=== PATIENT | male | born 1940 | race Hispanic/Latino ===

== ENCOUNTER 2017-01-12 16:49 | Inpatient (IN) | payer MEDICARE, OTHER ==
[2017-01-12 17:05] VITALS: BMI 27.1
[2017-01-12] MEDS ORDERED: Sodium Chloride 0.9% 1,000 ML IV ONE ×2 (17:08→18:47)
--- NOTE | 2017-01-12 17:09 | ED PDOC ---
Arrival/HPI - General Time Seen by Provider: 01/12/17 16:51 Historian: Patient - Critical Care Critical Care Minutes: 30 minutes - History of Present Illness Narrative History of Present Illness (Text): 01/12/17 17:00 76 year old male, whose past medical history includes hypertension, is brought in by EMS and presents to emergency department as AMS. Patient was found unconscious on the floor of his home by neighbor. Ambulance was called immediately afterwards. Limited HPI and ROS due to AMS. PMD: Dr. Hutchinson Symptom Onset: Sudden Symptom Course: Unchanged Context: Home Past Medical History - Provider Review Nursing Documentation Reviewed: Yes - Cardiac Hx Cardiac Disorders: Yes Hx Hypertension: Yes - Pulmonary Hx Respiratory Disorders: No - Neurological Hx Neurological Disorder: No - HEENT Hx HEENT Disorder: No - Renal Hx Renal Disorder: No - Endocrine/Metabolic Hx Endocrine Disorders: Yes (partial thyroidectomy) - Hematological/Oncological Hx Blood Disorders: No - Integumentary Hx Dermatological Disorder: No - Musculoskeletal/Rheumatological Hx Musculoskeletal Disorders: No Hx Falls: Yes - Gastrointestinal Hx Gastrointestinal Disorders: No - Genitourinary/Gynecological Hx Genitourinary Disorders: No - Psychiatric Hx Psychophysiologic Disorder: No Hx Anxiety: No Hx Emotional Abuse: No Hx Physical Abuse: No Hx Substance Use: No - Surgical History Hx Thyroidectomy: Yes (partial) Hx Tonsillectomy: Yes - Anesthesia Hx Anesthesia Reactions: No Hx Malignant Hyperthermia: No - Suicidal Assessment Feels Threatened In Home Enviroment: No Family/Social History - Physician Review Nursing Documentation Reviewed: Yes Family/Social History: No Known Family HX Smoking Status: Former Smoker Hx Alcohol Use: No Hx Substance Use: No Allergies/Home Meds Allergies/Adverse Reactions: Allergies Iodine and Iodide Containing Produc Allergy (Verified 01/12/17 17:01) URTICARIA Home Medications: Home Meds Medication Instructions Recorded Confirmed Unobtainable 01/12/17 01/12/17 Review of Systems - Review of Systems Systems not reviewed;Unavailable: Altered Mental Status Physical Exam Vital Signs Temp Pulse Resp BP Pulse Ox 01/12/17 20:00 67 24 147/102 H 99 01/12/17 18:26 98.0 F 75 18 165/100 H 100 01/12/17 17:27 98.2 F 85 18 174/108 H 96 Appearance: Positive for: Ill-Appearing, Unkept, Other (foul-smelling) Mental Status: Positive for: other (patient is aware he is in [facility], who he is, how old he is, when he was born, but is uncertain what happened to him except that he fell.) Finger Stick Blood Glucose: 137 - Systems Exam Head: Present: Other (decubitus to lateral right-side of head) Pupils: Present: PERRL Extroacular Muscles: Present: EOMI Conjunctiva: Present: Normal Mouth: Present: Moist Mucous Membranes Neck: Present: Normal Range of Motion Respiratory/Chest: Present: Clear to Auscultation, Good Air Exchange. No: Respiratory Distress, Accessory Muscle Use Cardiovascular: Present: Regular Rate and Rhythm, Normal S1, S2. No: Murmurs Abdomen: Present: Normal Bowel Sounds. No: Tenderness, Distention, Peritoneal Signs Back: Present: Normal Inspection Upper Extremity: Present: Other (decubitus of lateral right shoulder) Lower Extremity: Present: Other (decubitus of lateral side of right knee and medial side of left knee) Neurological: Present: GCS=15, CN II-XII Intact, Speech Normal Skin: Present: Warm, Dry, Normal Color. No: Rashes Psychiatric: Present: Alert, Oriented x 3, Normal Insight, Normal Concentration Medical Decision Making ED Course and Treatment: 01/12/17 17:03 Impression: 76 year old male with AMS. Physical exam shows decubitus to lateral right-side of head, right shoulder, right knee, and medial side of left knee. Plan: -- EKG -- Head CT -- Chest X-ray -- Labs -- Urinalysis -- Blood Culture -- Urine Culture -- IV Fluids -- Reassess and disposition Prior Visits: Notes and results from previous visits were reviewed. Patient was last seen in the emergency department on 01/29/2016 for AMS after being found lying on the ground outside. Progress Notes: 01/12/17 17:46 EKG shows normal sinus rhythm rate approximately 90 with a primary AV block and no acute ST or T-wave changes and Q waves inferiorly. 01/12/17 18:46 Code sepsis called. 01/12/2017 18:[address] IMPRESSION: Significant chronic white matter, basal nuclei and brainstem ischemic changes. Ischemic changes. Moderate to significant atrophy. Dictator: Blade Isidro DO 01/12/2017 19:[address] Hutchinson, whom agrees to take patient under service. Ibrahima's sister Ivon Chester: [phone] - Lab Interpretations Lab Results: 01/12/17 17:21 01/12/17 17:21 Lab Results 01/12/17 19:04: Urine Opiates Screen Negative, Urine Methadone Screen Negative, Ur Barbiturates Screen Negative, Ur Phencyclidine Scrn Negative, Ur Amphetamines Screen Negative, U Benzodiazepines Scrn Negative, U Oth Cocaine Metabols Negative, U Cannabinoids Screen Negative 01/12/17 19:04: Ammonia < 9 L 01/12/17 18:00: Urine Color Yellow, Urine Appearance Cloudy, Urine pH 6.0, Ur Specific [place] >= 1.030, Urine Protein 100 H, Urine Glucose (UA) Negative, Urine Ketones Negative, Urine Blood Large H, Urine Nitrate Negative, Urine Bilirubin Negative, Urine Urobilinogen 0.2, Ur Leukocyte Esterase Trace H, Urine RBC 25 - 30, Urine WBC 2 - 5, Ur Epithelial Cells 1 - 3, Urine Bacteria Mod 01/12/17 17:21: pO2 25 L, VBG pH 7.33, VBG pCO2 50.0, VBG HCO3 26.4, VBG Total CO2 27.9, VBG O2 Sat (Calc) 56.0, VBG Base Excess -0.2 L, VBG Potassium 3.8, Sodium 138.0, Chloride 106.0, Glucose 143 H, Lactate 2.2 H, FiO2 21.0, Venous Blood Potassium 3.8 01/12/17 17:21: Acetaminophen < 10.0 L 01/12/17 17:21: TSH 3rd Generation 6.73 H, Alcohol, Quantitative < 10 01/12/17 17:21: Sodium 140, Chloride 105, Potassium 4.0, Carbon Dioxide 25, Anion Gap 14, BUN 18, Creatinine 1.5, Est GFR ( Amer) 55, Est GFR (Non- Af Amer) 45, Random Glucose 142 H, Calcium 10.3, Phosphorus 2.6, Magnesium 1.8, Total Bilirubin 1.3, AST 26, ALT 28, Alkaline Phosphatase 107, Lactate Dehydrogenase 583, Total Creatine Kinase 220, Troponin I < 0.01 D, Total Protein 7.4, Albumin 4.3, Globulin 3.2, Albumin/Globulin Ratio 1.3 01/12/17 17:21: PT 10.4, INR 0.96, APTT 25.9 01/12/17 17:21: WBC 12.3 H D, RBC 4.68, Hgb 14.4, Hct 41.8 L, MCV 89.3, MCH 30.8 , MCHC 34.4, RDW 13.3, Plt Count 273, MPV 9.1, Gran % 81.9 H, Lymph % (Auto) 7.7 L, [place] % (Auto) 9.1 H, Eos % (Auto) 1.1 L, Baso % (Auto) 0.2, Gran # 10.05 H, Lymph # 1.0 L, [place] # 1.1 H, Eos # 0.1, Baso # 0.03 01/12/17 16:55: POC Glucose (mg/dL) 137 H - RAD Interpretation Radiology Orders: 01/12/17 17:05 HEAD W/O CONTRAST [CT] Stat 01/12/17 17:06 CHEST PORTABLE [RAD] Stat Chest one view shows an elevated right hemidiaphragm with no infiltrate or effusion. Target Protection Specialist: ED Physician - Medication Orders Current Medication Orders: Sodium Chloride (Sodium Chloride 0.9%) 1,000 mls @ 500 mls/hr IV ONCE ONE Stop: 01/12/17 20:46 Last Admin: 01/12/17 19:15 Dose: 500 mls/hr eMAR Start Stop Document 01/12/17 19:15 IT (Rec: 01/12/17 19:15 IT [id number]) Intravenous Solution Start Date 01/12/17 Start Time 19:15 End Date 01/12/17 End time 21:15 Total Infusion Time 120 Discontinued Medications Sodium Chloride (Sodium Chloride 0.9%) 1,000 mls @ 500 mls/hr IV ONCE ONE Stop: 01/12/17 19:07 Last Admin: 01/12/17 17:28 Dose: 500 mls/hr eMAR Start Stop Document 01/12/17 17:28 IT (Rec: 01/12/17 17:28 IT [id number]) Intravenous Solution Start Date 01/12/17 Start Time 17:28 End Date 01/12/17 End time 19:28 Total Infusion Time 120 Ceftriaxone Sodium (Rocephin 1 Gram Ivpb) 1 gm in 100 mls @ 200 mls/hr IVPB STAT STA PRN Reason: Protocol Stop: 01/12/17 19:14 Last Admin: 01/12/17 18:56 Dose: 200 mls/hr eMAR Start Stop Document 01/12/17 18:56 IT (Rec: 01/12/17 18:56 IT [id number]) Intravenous Solution Start Date 01/12/17 Start Time 18:56 End Date 01/12/17 End time 19:20 Total Infusion Time 24 - Scribe Statement The provider has reviewed the documentation as recorded by the Chapraro Corcoran Provider Scribe Attestation: All medical record entries made by the Chaparro were at my direction and personally dictated by me. I have reviewed the chart and agree that the record accurately reflects my personal performance of the history, physical exam, medical decision making, and the department course for this patient. I have also personally directed, reviewed, and agree with the discharge instructions and disposition. Disposition/Present on Arrival - Present on Arrival Any Indicators Present on Arrival: No History of DVT/PE: No History of Uncontrolled Diabetes: No Urinary Catheter: No History of Decub. Ulcer: No History Surgical Site Infection Following: None - Disposition Have Diagnosis and Disposition been Completed?: Yes Diagnosis: Altered mental status, Leukocytosis, Sepsis, Hematuria, Urinary tract infection Disposition: HOSPITALIZED Disposition Time: 19:33 Patient Plan: Admission, Telemetry Patient Problems: Current Active Problems Problem Status Onset Altered mental status Acute Hematuria Acute Leukocytosis Acute Sepsis Acute Urinary tract infection Acute Condition: SERIOUS
[2017-01-12 17:35] LABS: BASO # 0.03 K/mm3 (0.0-2.0); BASO % 0.2 % (0.0-3.0); EOS # 0.1 (0.0-0.7); EOS % 1.1 % (1.5-5.0); GRAN # 10.05 (1.4-6.5); GRAN % 81.9 % (50.0-68.0); HEMATOCRIT 41.8 % (42.0-52.0); LYMPH % 7.7 % (22.0-35.0); MEAN CELL VOLUME 89.3 fl (80.0-105.0); MEAN CORPUSCULAR HEMOGLOBIN 30.8 pg (25.0-35.0); MEAN CORPUSCULAR HGB CONC 34.4 g/dl (31.0-37.0); MEAN PLATELET VOLUME 9.1 fl (7.0-11.0); MONO # 1.1 (0.1-0.6); MONO % 9.1 % (1.0-6.0); RED CELL DISTRIBUTION WIDTH 13.3 % (11.5-14.5); WHITE BLOOD COUNT 12.3 10^3/ul (4.5-11.0)
[2017-01-12 17:36] LABS: VENOUS BLOOD GAS BASE EXCESS -0.2 mmol/L (0.0-2.0); VENOUS BLOOD PH 7.33 (7.32-7.43)
[2017-01-12 17:43] LABS: SODIUM 140 mmol/L (132-148)
[2017-01-12 17:45] LABS: ALCOHOL SERUM < 10 mg/dL (0-10)
[2017-01-12 17:46] LABS: ALB/GLOB RATIO 1.3 (1.1-1.8); ALKALINE PHOSPHATASE 107 U/L (38-126); ALT/SGPT 28 U/L (7-56); AST/SGOT 26 U/L (17-59); BILIRUBIN,TOTAL 1.3 mg/dL (0.2-1.3); BLOOD UREA NITROGEN 18 mg/dL (7-21); CALCIUM 10.3 mg/dL (8.4-10.5); CARBON DIOXIDE 25 mmol/L (21-33); CHLORIDE 105 mmol/L (98-107); GFR AFRICAN-AMERICAN 55; GLUCOSE,RANDOM 142 mg/dL (70-110); MAGNESIUM 1.8 mg/dL (1.7-2.2); PHOSPHOROUS 2.6 mg/dL (2.5-4.5); TOTAL PROTEIN 7.4 g/dL (5.8-8.3)
[2017-01-12 17:51] LABS: INR 0.96 (0.93-1.08); PARTIAL THROMBOPLASTIN TIME 25.9 Seconds (23.7-30.8)
[2017-01-12 18:02] LABS: TROPONIN I < 0.01 ng/mL
[2017-01-12 18:15] LABS: THYROID STIMULATING HORMONE 6.73 mIU/mL (0.46-4.68)
[2017-01-12 18:27] LABS: URINE BILIRUBIN NEGATIVE (NEGATIVE); URINE BLOOD LARGE (NEGATIVE); URINE GLUCOSE (UA) NEGATIVE (NEGATIVE); URINE KETONE NEGATIVE (NEGATIVE); URINE LEUKOCYTE ESTERASE TRACE Leu/uL (NEGATIVE); URINE PROTEIN 100 mg/dL (<30 mg/dL); URINE UROBILINOGEN 0.2 E.U./dL (<1 E.U./dL)
[2017-01-12 18:29] LABS: URINE APPEARANCE CLOUDY (CLEAR); URINE COLOR YELLOW (YELLOW)
[2017-01-12] MEDS ORDERED: cefTRIAXone 1 gm 1 GM/100 ML BAG IVPB STA (18:45)
--- NOTE | 2017-01-12 18:56 | CT ---
PROCEDURE: CT scan brain dated 01/12/2017 HISTORY: AMS. COMPARISON: Comparison made with prior CT scan brain dated 01/28/2016. TECHNIQUE: Axial computed tomography images were obtained through the head/brain without intravenous contrast. Radiation dose: Total exam DLP = 843.77 mGy-cm. This CT exam was performed using one or more of the following dose reduction techniques: Automated exposure control, adjustment of the mA and/or kV according to patient size, and/or use of iterative reconstruction technique. FINDINGS: HEMORRHAGE: No acute parenchymal, subarachnoid or extra-axial hemorrhage. BRAIN: Re- demonstrated are significant diffuse/confluent chronic periventricular white matter ischemic changes which extend peripherally into the deep and subcortical white matter both cerebral hemispheres. More discrete chronic infarct changes in the left posterior superior parieto-occipital watershed zone with a similar focus in the right posterior temporal parietal watershed zone. A additionally, there are multiple chronic bilateral basal nuclei and brainstem ischemic changes. Moderate to significant atrophy. Moderate generalized volume loss. VENTRICLES: No obstructive hydrocephalus. CALVARIUM: There are no acute calvarial fractures. PARANASAL SINUSES: Unremarkable as visualized. No significant inflammatory changes. MASTOID AIR CELLS: Unremarkable as visualized. No inflammatory changes. OTHER FINDINGS: None. IMPRESSION: Significant chronic white matter, basal nuclei and brainstem ischemic changes. Ischemic changes. Moderate to significant atrophy.
[2017-01-12 19:17] LABS: URINE BACTERIA MOD (NEG); URINE RBC 25 - 30 /hpf (0-2)
--- NOTE | 2017-01-12 19:39 | CARD ---
APPROVED REPORT EKG Measurement Heart [id number] <Conclusion> Sinus rhythm with 1st degree AV block Inferior infarct, age undetermined Abnormal ECG
[2017-01-12 21:25] LABS: VENOUS BLOOD GAS BASE EXCESS -1.9 mmol/L (0.0-2.0); VENOUS BLOOD PH 7.33 (7.32-7.43)
[2017-01-12] MEDS ORDERED: Vancomycin 1gm in NS 250ml 1 GM/250 ML BAG IVPB STA (23:38)
--- NOTE | 2017-01-13 01:06 | CP.PCM.PN ---
Subjective - Date & Time of Evaluation Date of Evaluation: 01/13/17 Time of Evaluation: 00:55 - Subjective Subjective: called by nurse pt ,bp is 184/90, pt is admitted today was found on the floor , pt has hx of htn , hypothyroidism,and cognitive impairment ,unable to state whether he is taking his meds .his bp in the ER was 147/102 he recieved 1 litter of NS in the ER . pt is on metoprolol amloidpine and lisinopril at home, no family member is at bed side for further information. Objective - Vital Signs/Intake and Output Vital Signs (last 24 hours): Temp Pulse Resp BP Pulse Ox 98.0 F 65 18 184/91 H 99 01/12/17 18:26 01/13/17 00:25 01/12/17 21:56 01/13/17 00:25 01/12/17 21:25 - Medications Medications: Current Medications Vancomycin HCl (Vancomycin 1gm) 1 gm in 250 mls @ 167 mls/hr IVPB STAT STA PRN Reason: Protocol Stop: 01/13/17 01:07 Last Admin: 01/13/17 00:24 Dose: 167 mls/hr Cefepime HCl (Maxipime 1gm) 1 gm in 100 mls @ 100 mls/hr IVPB Q12 VIRAL PRN Reason: Protocol - Labs Labs: PT 10.4 Seconds (9.9-11.8) 01/12/17 17:21 INR 0.96 (0.93-1.08) 01/12/17 17:21 APTT 25.9 Seconds (23.7-30.8) 01/12/17 17:21 - Constitutional Appears: No Acute Distress - Head Exam Head Exam: NORMOCEPHALIC - Eye Exam Eye Exam: Normal appearance - ENT Exam ENT Exam: Mucous Membranes Moist - Neck Exam Neck Exam: Full ROM - Respiratory Exam Respiratory Exam: Clear to Ausculation Bilateral - Cardiovascular Exam Cardiovascular Exam: RRR, +S1, +S2 - Rectal Exam Rectal Exam: Deferred - Extremities Exam Extremities Exam: Full ROM - Neurological Exam Neurological Exam: Awake - Skin Skin Exam: Normal Color Assessment and Plan - Assessment and Plan (Free Text) Assessment: hypertension uncontrolled. cognitive impairment chronic ischemic changes in and moderate atrophy on brain ct. uti. Plan: clonidine 0.[address] lala was called by nurse.
[2017-01-13] MEDS: Cefepime 1gm in NS 100ml 1 GM/100 ML BAG IVPB SCH ×3 (02:08→22:56)
--- NOTE | 2017-01-13 02:40 | PCM.SEPTIC ---
Sepsis Progress Note - Reassessment Type Date of Evaluation: 01/13/17 Time of Evaluation: 00:50 Reassessment Type: Non-invasive reassessment - Non Invasive Reassessment Were the most recent vital sign reviewed: Yes Vital Sign (Latest): Temp Pulse Resp BP Pulse Ox 98.5 F 65 18 184/91 H 99 01/13/17 00:01 01/13/17 00:25 01/13/17 00:01 01/13/17 00:25 01/12/17 21:25 Cardiovascular: Yes: Regular Rate, Rhythm. No: Gallop, Murmur Respiratory: Yes: Normal Breath Sounds, Accessory Muscle Use. No: Crackles, Rales Capillary Refill: Normal (Less than 2 sec) Pulses: Normal Radial, Normal Dorsalis Pedis, Normal Posterior Tibialis Skin: Normal Color
[2017-01-13 08:24] LABS: BASO # 0.05 K/mm3 (0.0-2.0); BASO % 0.6 % (0.0-3.0); EOS # 0.4 (0.0-0.7); EOS % 4.3 % (1.5-5.0); GRAN # 5.74 (1.4-6.5); GRAN % 64.8 % (50.0-68.0); HEMATOCRIT 38.2 % (42.0-52.0); LYMPH # 1.9 (1.2-3.4); LYMPH % 21.2 % (22.0-35.0); MEAN CELL VOLUME 90.3 fl (80.0-105.0); MEAN CORPUSCULAR HGB CONC 34.3 g/dl (31.0-37.0); MONO # 0.8 (0.1-0.6); MONO % 9.1 % (1.0-6.0); RED CELL DISTRIBUTION WIDTH 13.5 % (11.5-14.5); WHITE BLOOD COUNT 8.9 10^3/ul (4.5-11.0)
[2017-01-13 08:35] LABS: ALB/GLOB RATIO 1.3 (1.1-1.8); ALKALINE PHOSPHATASE 90 U/L (38-126); ALT/SGPT 34 U/L (7-56); AST/SGOT 22 U/L (17-59); BILIRUBIN,TOTAL 1.1 mg/dL (0.2-1.3); BLOOD UREA NITROGEN 15 mg/dL (7-21); CALCIUM 9.8 mg/dL (8.4-10.5); CARBON DIOXIDE 24 mmol/L (21-33); CHLORIDE 111 mmol/L (95-110); GFR AFRICAN-AMERICAN > 60; GLUCOSE,RANDOM 113 mg/dL (70-110); POTASSIUM 4.7 mmol/L (3.6-5.0); SODIUM 143 mmol/L (132-148); TOTAL PROTEIN 6.4 g/dL (5.8-8.3)
--- NOTE | 2017-01-13 09:19 | RAD ---
HISTORY: ams COMPARISON: 01/28/2016 FINDINGS: LUNGS: No active pulmonary disease. PLEURA: No significant pleural effusion identified, no pneumothorax apparent. CARDIOVASCULAR: Normal. OSSEOUS STRUCTURES: No significant abnormalities. VISUALIZED UPPER ABDOMEN: Normal. OTHER FINDINGS: None. IMPRESSION: No active disease.
--- NOTE | 2017-01-13 12:40 | CP.PCM.CON ---
History of Present Illness - History of Present Illness History of Present Illness: 76 year old male with PMH of HTN, S/P partial thyroidectomy, S/P tonsillectomy, was brought in to [facility] after he was found by neighbor to be on the floor at home. The patient denies losing consciousness and claims that he was aware the whole time that he was on the floor after a floor for about 4 hours. He denies headache or dizziness, denies trauma to the head, no fever or chills, no cough or rhinorrhea, no nausea or vomiting, no chest pain, no SOB, no abdominal pain, no diarrhea, no dysuria. Infectious diseases consult is requested to further evaluate, especially after he was found to have leukocytosis in the ED. Review of Systems - Review of Systems All systems: reviewed and no additional remarkable complaints except (as per HPI ) Past Patient History - Past Social History Smoking Status: Former Smoker - CARDIAC Hx Cardiac Disorders: Yes Hx Hypertension: Yes - PULMONARY Hx Respiratory Disorders: No - NEUROLOGICAL Hx Neurological Disorder: No - HEENT Hx HEENT Problems: No - RENAL Hx Chronic Kidney Disease: No - ENDOCRINE/METABOLIC Hx Endocrine Disorders: Yes (partial thyroidectomy) - HEMATOLOGICAL/ONCOLOGICAL Hx Blood Disorders: No - INTEGUMENTARY Hx Dermatological Problems: No - MUSCULOSKELETAL/RHEUMATOLOGICAL Hx Falls: Yes - GASTROINTESTINAL Hx Gastrointestinal Disorders: No - GENITOURINARY/GYNECOLOGICAL Hx Genitourinary Disorders: No - PSYCHIATRIC Hx Psychophysiologic Disorder: No Hx Anxiety: No Hx Emotional Abuse: No Hx Physical Abuse: No - SURGICAL HISTORY Hx Surgeries: Yes (tonsillectomy) - ANESTHESIA Hx Anesthesia Reactions: No Hx Malignant Hyperthermia: No Meds Allergies/Adverse Reactions: Allergies Allergy/AdvReac Type Severity Reaction Status Date / Time Iodine and Iodide Containing Allergy URTICARIA Verified 01/12/17 17:01 Produc Physical Exam - Constitutional Appears: Non-toxic - Head Exam Head Exam: NORMAL INSPECTION - ENT Exam ENT Exam: Mucous Membranes Moist - Neck Exam Neck exam: Negative for: Lymphadenopathy, Meningismus - Respiratory Exam Respiratory Exam: Decreased Breath Sounds - Cardiovascular Exam Cardiovascular Exam: +S1, +S2 - GI/Abdominal Exam GI & Abdominal Exam: Soft. absent: Tenderness Results - Vital Signs Recent Vital Signs: Last Vital Signs Temp 98.0 F 01/12/17 18:26 Pulse 69 01/12/17 22:00 Resp 18 01/12/17 21:56 BP 174/92 H 01/12/17 21:25 Pulse Ox 99 01/12/17 21:25 - Labs Result Diagrams: 01/13/17 07:40 01/13/17 07:40 Labs: Laboratory Results - last 24 hr 01/12/17 21:20 pO2 45 VBG pH 7.33 VBG pCO2 46.0 VBG HCO3 24.3 VBG Total CO2 25.7 VBG O2 Sat (Calc) 84.3 H VBG Base Excess -1.9 L VBG Potassium 3.9 Sodium 139.0 Chloride 110.0 H Glucose 118 H Lactate 1.2 FiO2 21.0 Venous Blood Potassium 3.9 Assessment & Plan - Assessment and Plan (Free Text) Plan: Assessment Systemic Inflammatory Response Syndrome, probably acute stress reaction after a fall, R/O sepsis source to be determined HTN S/P partial thyroidectomy S/P tonsillectomy Plan Gave a dose of IV Vancomycin and started Cefepime pending official results of CXR, blood, urine cx, PCT will trend WBC count and follow up work up for possible syncopal episode
--- NOTE | 2017-01-13 14:46 | CON ---
DATE: NEUROLOGY CONSULTATION CHIEF COMPLAINT: Altered mental status. HISTORY OF PRESENT ILLNESS: This is a 76-year-old man who is well known to me from 2016 who presents with history of hypertension, hypothyroidism, cognitive impairment who came to the hospital and was found to be altered and was found unconscious on the floor at his home by his neighbors. He came with elevated systolic and diastolic blood pressures. CAT scan of the head just showed chronic infarcts in the left posterior-superior, posterior parieto-occipital areas, watershed zone, and the right posterior yazidi chronic infarct. Currently, he is more awake. He is moving all extremities equally. No pronator drift seen. He is much more responsive. His blood pressure is much more controlled. MRI of the brain has been ordered. He still has baseline cognitive impairment. He follows simple commands and has history of having a low B12. PAST MEDICAL HISTORY: Hypertension, cognitive impairment, hypothyroidism, history of B12 deficiency. REVIEW OF SYSTEMS: A 14-point review of systems is negative except as per the HPI. ALLERGIES: IODINE, CONTINUE PRODUCTS. FAMILY HISTORY: Noncontributory. SOCIAL HISTORY: No illicit drug use, smoking, or EtOH abuse. REVIEW OF SYSTEMS: A 14-point review of systems is negative except as per the HPI. PHYSICAL EXAMINATION: GENERAL: The patient is seen up in bed, in no acute distress VITAL SIGNS: Temperature 98, pulse rate 56, blood pressure 141/77, respiratory rate 19, and oxygen saturation 96% on room air. HEENT: Atraumatic and normocephalic. PERRLA. Extraocular muscles are intact. NECK: Supple. No JVD. No adenopathy noted. LUNGS: Clear to auscultation. No adventitious sounds. HEART: S1 and S2. Normal rate and rhythm. No murmurs, rubs, or gallops. ABDOMEN: Soft, nontender, nondistended. Bowel sounds present. EXTREMITIES: No clubbing. No cyanosis. Peripheral pulses 2+ felt bilaterally. NEUROLOGIC: The patient is alert and oriented to person and place, not much to month or year. Recall after 5 minutes is 0/3. Poor attention. Slow thought process. Cranial nerves II through XI intact. Motor exam: Increased tone throughout. Moves all extremities equally. No pronator drift seen. Sensory exam: Decreased light touch and pinprick up to the calves bilaterally. Decreased vibration of the toes. DTRs are 1+ throughout. Coordination of uvcnba-mg-lbms intact. Gait is deferred for now. LABORATORY DATA: Sodium 143, potassium 4.7, chloride of 111, carbon dioxide 24, BUN of 15, creatinine 1.3, and random glucose 113. ASSESSMENT AND PLAN: This is a 76-year-old man with past medical history of hypertension, hypothyroidism, cognitive impairment, history of B12 deficiency was found down unconscious by his neighbor at home, was found to be slightly altered with elevated systolic and diastolic blood pressures. Altered mental status is likely secondary to hypertensive urgency versus possible infarct. We will recommend: 1. MRI of the brain to asses for an anterior infarct. 2. B12 level. 3. Gentle hydration. 4. Get physical and occupational therapy evaluation and may benefit from subacute rehab. At this time, continue current present medical management. Thanks for this consult. Emmanuel Snyder MD
--- NOTE | 2017-01-13 22:39 | CON ---
CARDIOLOGY CONSULTATION DATE: 01/13/2017 REASON FOR CONSULTATION: Hypertension, admitted with possible fall, possible syncope. BRIEF CLINICAL HISTORY: This is a 76-year-old male with a past medical history significant for hypertension, brought to the EMS emergency department, has altered mental status, found unconscious on the floor of his home by neighbor. The patient unable to recall any event, really poor historian. Bandar any chest pain, denies any shortness of breath, denies any palpitation. PAST MEDICAL HISTORY: Significant for recurrent syncope, history of extensive evaluation, history of loop recorder implantation revealed, dated 02/06/2016, hypertension and hypothyroidism. PAST SURGICAL HISTORY: Significant for thyroidectomy. SOCIAL HISTORY: Quit smoking 24 to 48 years ago, history of alcohol abuse, use 2 can of drink everyday. PREVIOUS CARDIAC WORKUP: As follows: The patient had stress test on 01/30/2016 that revealed essentially normal myocardial perfusion study. The patient had also negative tilt-table, negative EP study, after having a brief period of bradycardia, history of recurrent syncope, history of negative tilt-table, history of negative electrophysiological study, negative stress test, no significant structural heart disease. Echo dated 01/29/2015 shows normal chamber sized ejection fraction of 55 to 60%, trace mitral regurgitation, trace tricuspid regurgitation, trace pulmonary insufficiency, trace aortic regurgitation status post implantable loop recorder on 02/06/2016. REVIEW OF SYSTEMS: As per HPI. PHYSICAL EXAMINATION: VITAL SIGNS: Temperature afebrile, heart rate 56 and blood pressure 140/77. HEENT: PERRLA. Extraocular muscles are intact. NECK: Supple. No carotid bruits. No thyromegaly. CHEST: Clear to auscultation. HEART: S1 and S2 regular. ABDOMEN: Soft. EXTREMITIES: Clubbing and cyanosis negative. LABORATORY DATA: Blood workup as follows; WBC 8.9, hemoglobin 13.8, hematocrit 38.2 and platelet count 242. Chemistry shows sodium 143, potassium 4.7, chloride 111, carbon dioxide 24, anion gap of 13, BUN 15 and creatinine 1.3. IMPRESSION: Status post syncope, rule out orthostatic hypotension. Previous cardiac workup including stress test, echocardiogram negative, history of tilt-table, history of electrophysiology study negative status post loop recorder. RECOMMENDATIONS: Check for orthostatic hypotension. Monitor in telemetry. We will get a loop recorder implantation. We will put low dose of Norvasc and p.r.n. hydralazine and check for orthostatic. We will follow with you. The patient is a very poor historian, information obtained from the medical record from the chart of the previous admission. The patient is unable to give any details of the history. We will call for remote transtelephonic reveal recording from Dr. Gonzalez's office and also request for on-site to check loop recorder. Thank you for providing us the opportunity in taking care of the patient, Dulce Alexandra. Gabriela Joshi MD
--- NOTE | 2017-01-14 02:40 | HP ---
CHIEF COMPLAINT AND HISTORY OF PRESENT ILLNESS: This is a 76-year-old male who has come in to the hospital, was found to have changes in his mental status. He was found unconscious on the floor at home by his neighbor. The patient has a history of hypertension. He is not able to give much information, does not remember the details of what happened. The patient says he has no pain. He has no headaches or dizziness, no nausea or vomiting. He has no abdominal pain, no back pain, no dysuria, frequency, no nocturia. It is estimated that he may have been on the floor for 4 hours. REVIEW OF SYMPTOMS: All other review of systems are within normal limits except as mentioned. ALLERGIES: TO IODINE AND IODINE-CONTAINING PRODUCTS. PAST MEDICAL HISTORY: He had hypertension, partial thyroidectomy. SOCIAL HISTORY: He smoked, but quit 10 years ago. He was smoking half a pack per day for 30 years. PAST SURGICAL HISTORY: Tonsillectomy. FAMILY HISTORY: Unable to assess. MEDICATIONS: He does not remember his medications. PHYSICAL EXAMINATION VITAL SIGNS: Temperature is 98.2, pulse of 56, blood pressure 139/82, respirations 19, O2 saturation 92%. Height is 6 feet, weight is 164 pounds, BMI is 22.3. GENERAL: The patient lying in bed, uncomfortable, and in no acute distress. HEENT: Atraumatic and normocephalic. Anicteric sclerae. Moist mucosa. [place] conjunctivae. No oral lesions. NECK: No JVD, anterior and posterior adenopathy, thyromegaly, or bruits. CARDIOVASCULAR: S1 and S2 regular. No murmur, rubs, or gallop. LUNGS: Clear to auscultation bilaterally. No wheezes, rales, or rhonchi. ABDOMEN: Bowel sounds are positive. Soft, nontender and nondistended. No hepatosplenomegaly. No rebound and no guarding EXTREMITIES: No cyanosis, clubbing, or edema. NEUROLOGIC: No facial asymmetry. Tongue is midline. No uvula deviation. Power is 5/5 upper extremity and lower extremity. Sensation intact in upper extremity and lower extremity. PSYCHIATRIC: Alert, awake and oriented x2. No anxiety or depression. He has normal affect. GENITOURINARY: No CVA tenderness. VASCULAR: 2+ pulses in the carotid pulses and pedal pulses. SKIN: No erythema or nodules SPINE: Shows normal curvature. EXTREMITIES: No Cyanosis and clubbing, no edema. LABORATORY DATA: White count of 12.3, hemoglobin of 14.4, platelet count is 273. Labs have been reviewed. Creatinine is 1.3, TSH is 6.7. Urine shows blood, is large. Toxicology shows the patient's acetaminophen is less than 10, alcohol is less than 10. CT of the head shows significant chronic white matter, basal nuclei and brain stem ischemic changes, [id number]-rtebhcfauoe atrophy. A chest x-ray shows no active disease. ASSESSMENT: 1. Delirium. 2. Hypertension. 3. Fall. PLAN: The patient is going to be admitted to the hospital. His white count is improved this morning at 8.9. It is not clear what the etiology of his fall is. He denies any loss of consciousness. The patient has a brain MRI that has been ordered. He is on cefepime for antibiotics. Dr. Acuña will be consulted as well and Neurology. The patient is going to be seen by Dr. Joshi for possible cardiac evaluation. The patient will also need physical therapy. We will continue to monitor. Kirill Velasco MD
[2017-01-14 07:12] LABS: BASO # 0.04 K/mm3 (0.0-2.0); BASO % 0.5 % (0.0-3.0); EOS # 0.4 (0.0-0.7); EOS % 4.2 % (1.5-5.0); GRAN # 5.77 (1.4-6.5); GRAN % 67.8 % (50.0-68.0); HEMATOCRIT 38.3 % (42.0-52.0); LYMPH # 1.6 (1.2-3.4); MEAN CORPUSCULAR HEMOGLOBIN 30.2 pg (25.0-35.0); MEAN CORPUSCULAR HGB CONC 33.2 g/dl (31.0-37.0); MONO # 0.7 (0.1-0.6); MONO % 8.5 % (1.0-6.0); RED CELL DISTRIBUTION WIDTH 13.6 % (11.5-14.5); WHITE BLOOD COUNT 8.5 10^3/ul (4.5-11.0)
[2017-01-14 07:34] LABS: ALB/GLOB RATIO 1.2 (1.1-1.8); BILIRUBIN,TOTAL 0.9 mg/dL (0.2-1.3); CALCIUM 9.6 mg/dL (8.4-10.5); MAGNESIUM 1.8 mg/dL (1.7-2.2); PHOSPHOROUS 2.5 mg/dL (2.5-4.5); POTASSIUM 4.4 mmol/L (3.6-5.0); TOTAL PROTEIN 6.4 g/dL (5.8-8.3)
--- NOTE | 2017-01-14 08:44 | CP.PCM.PN ---
Subjective - Date & Time of Evaluation Date of Evaluation: 01/14/17 Time of Evaluation: 08:40 - Subjective Subjective: Neurology Progress Note for Daniel Lane PGY2 Patient seen and examined at bedside. As per nursing, there were no acute overnight events, but patient continues to be confused. Upon examination, he was A&O x [address], but not time. He denies having any pain, weakness, CP, SOB, n/v/d, numbness/tingling. Objective - Vital Signs/Intake and Output Vital Signs (last 24 hours): Temp Pulse Resp BP Pulse Ox 97.3 F L 61 20 159/79 H 98 01/14/17 06:00 01/14/17 06:00 01/14/17 06:00 01/14/17 06:00 01/14/17 06:00 Intake and Output: 01/14/17 01/14/17 06:59 18:59 Intake Total 100 0 Output Total 500 Balance 100 -500 - Medications Medications: Current Medications Cefepime HCl (Maxipime 1gm) 1 gm in 100 mls @ 100 mls/hr IVPB Q12 VIRAL PRN Reason: Protocol Last Admin: 01/13/17 22:56 Dose: 100 mls/hr - Labs Labs: 01/14/17 06:30 01/14/17 06:30 PT 10.4 Seconds (9.9-11.8) 01/12/17 17:21 INR 0.96 (0.93-1.08) 01/12/17 17:21 APTT 25.9 Seconds (23.7-30.8) 01/12/17 17:21 - Constitutional Appears: No Acute Distress - Head Exam Head Exam: ATRAUMATIC, NORMAL INSPECTION, NORMOCEPHALIC - Eye Exam Eye Exam: Normal appearance, PERRL Pupil Exam: NORMAL ACCOMODATION, PERRL - ENT Exam ENT Exam: Mucous Membranes Moist - Respiratory Exam Respiratory Exam: Clear to Ausculation Bilateral, NORMAL BREATHING PATTERN. absent: Rales, Rhonchi, Wheezes - Cardiovascular Exam Cardiovascular Exam: REGULAR RHYTHM, +S1, +S2. absent: Gallop, Rubs, Murmur - GI/Abdominal Exam GI & Abdominal Exam: Soft, Normal Bowel Sounds. absent: Tenderness - Neurological Exam Neurological Exam: Alert, Awake, CN II-XII Intact. absent: Oriented x3 (A&O x 2 ) Neuro motor strength exam: Left Upper Extremity: 5, Right Upper Extremity: 5, Left Lower Extremity: 5, Right Lower Extremity: 5 Additional comments: Decreased sensation to light tough and pinprick up to calves bilaterally. Decreased vibration of toes. DTR 1+ throughout. Coordination of finger to nose intact. - Psychiatric Exam Psychiatric exam: Normal Affect, Normal Mood - Skin Skin Exam: Dry, Warm Assessment and Plan - Assessment and Plan (Free Text) Assessment: This is a 76Y M with PMH HTN, Hypothryroidism, cognitive impairment, hx of B12 deficiency, who was found unconscious at neighbor's home wand was found to be slightly altered with elevated BP. AMS is secondary to HTN urgency versus possible CVA. Plan: - Brain MRI - loop recorder will be interrogated then MRI can be done - Carotid doppler done- read pending - B12 was within normal limits - Continue gentle hydration - Physical therapy/occupational therapy Case seen, discussed and reviewed with Dr. Snyder. Daniel Lui PGY2
--- NOTE | 2017-01-14 10:51 | RAD ---
HISTORY: R/O pneumonia Vs CHF COMPARISON: No prior. FINDINGS: LUNGS: No active pulmonary disease. PLEURA: No significant pleural effusion identified, no pneumothorax apparent. CARDIOVASCULAR: Normal. OSSEOUS STRUCTURES: No significant abnormalities. VISUALIZED UPPER ABDOMEN: Normal. OTHER FINDINGS: None. IMPRESSION: No active disease.
--- NOTE | 2017-01-14 11:50 | PN ---
DATE: 01/14/2017 REASON FOR CONSULTATION AND FOLLOWUP: Hypertension, admitted with possible fall, syncope. SUBJECTIVE: The patient denies any chest pain, shortness of breath, any palpitation. OBJECTIVE/PHYSICAL EXAMINATION: As follows: VITAL SIGNS: Temperature is afebrile, heart rate is 61 and blood pressure is 159/79. HEENT: PERRLA. Extraocular muscles are intact. NECK: Supple. No carotid bruits. No thyromegaly. CHEST: Clear to auscultation. HEART: S1 and S2 regular. ABDOMEN: Soft. EXTREMITIES: Clubbing and cyanosis negative.. LABORATORY DATA: Blood workup as follows; WBC of 8.5, hemoglobin of 12.7, hematocrit of 38.3 and platelet count of 240. Chemistry shows sodium of 140, potassium of 4.4, chloride of 110, carbon dioxide of 26, anion gap of 11, BUN of 14 and creatinine of 1.4. TSH of 6.8. Total protein of 6.4, albumin of 2.0, and albumin-globin ration 1.2. Triglycerides of 166, LDL of 183, HDL of 113 and cholesterol of 42. IMPRESSION: Status post fall, status post recurrent syncope, history of syncope, electrophysiological work including tilt-table and electrophysiology is negative, he is status post loop recorder implantable dated 02/06/2016, history of stress test on 01/29/2015 was negative, history of echocardiogram on 01/29/2015 is normal, ejection fraction of 50%, trace mitral regurgitation, trace tricuspid regurgitation, trace aortic regurgitation, and implantable loop recorder implanted on 02/06/2016. Prior to that the patient has negative study and negative tilt-table. RECOMMENDATIONS: Due to orthostatic hypotension, again we will orthostatic hypotension, aggressively control blood pressure. Neurologist is concerned about to do the MRI, but I told them that the patient has implantable loop recorder, past history significant for thyroidectomy and supplement of thyroid. TSH is elevated, so we will increase current dose to 25 and follow up serially if we may need to increase more, as the patient it looks like demented, unable to give any history of information regarding the medication. We will also start 5 mg of Norvasc and monitor the blood pressure. He is being treated also for sepsis, source undetermined, on vancomycin and cefepime. Being followed by ID and will follow with you. We will get a chest x-ray to find out the position to reveal, the patient denies that he has any implant done, but our records showed that the patient has a implantable loop recorder. We will put Synthroid 25 mcg daily. Thank you for providing us the opportunity in taking care of the patient, Ibrahima Cardona. Gabriela Joshi MD
--- NOTE | 2017-01-14 12:15 | CP.PCM.PN ---
Subjective - Date & Time of Evaluation Date of Evaluation: 01/14/17 Time of Evaluation: 10:30 - Subjective Subjective: Comfortable, no fevers, not in distress. Objective - Vital Signs/Intake and Output Vital Signs (last 24 hours): Temp Pulse Resp BP Pulse Ox 97.3 F L 61 20 159/79 H 98 01/14/17 06:00 01/14/17 06:00 01/14/17 06:00 01/14/17 06:00 01/14/17 06:00 Intake and Output: 01/14/17 01/14/17 06:59 18:59 Intake Total 100 0 Output Total 500 Balance 100 -500 - Medications Medications: Current Medications Amlodipine Besylate (Norvasc) 10 mg PO DAILY VIRAL Levothyroxine Sodium (Synthroid) 25 mcg PO 0600 VIRAL - Labs Labs: 01/14/17 06:30 01/14/17 06:30 PT 10.4 Seconds (9.9-11.8) 01/12/17 17:21 INR 0.96 (0.93-1.08) 01/12/17 17:21 APTT 25.9 Seconds (23.7-30.8) 01/12/17 17:21 - Constitutional Appears: Non-toxic, No Acute Distress - Head Exam Head Exam: NORMAL INSPECTION - Neck Exam Neck Exam: absent: Meningismus - Respiratory Exam Respiratory Exam: Decreased Breath Sounds - Cardiovascular Exam Cardiovascular Exam: +S1, +S2 - GI/Abdominal Exam GI & Abdominal Exam: Soft. absent: Tenderness Assessment and Plan - Assessment and Plan (Free Text) Plan: Assessment Systemic Inflammatory Response Syndrome, probably acute stress reaction after a fall, so far no sepsis source identified HTN S/P partial thyroidectomy S/P tonsillectomy Plan will d/c Cefepime; CXR does not show infiltrates, blood, urine cx are negative, PCT is only 0.08 WBC count has normalized follow up work up for possible syncopal episode (ie. MRI brain today)
--- NOTE | 2017-01-14 13:56 | US ---
PROCEDURE: Bilateral carotid artery duplex ultrasound HISTORY: Carotid stenosis syncope PHYSICIAN(S): Lencho Tian MD. TECHNIQUE: Duplex sonography and color-flow Doppler were used to evaluate the carotid bifurcations and limited segments of the vertebral arteries bilaterally. FINDINGS: There is mild to moderate smooth heterogeneous plaque noted at the carotid bifurcations bilaterally. The peak systolic velocity in the proximal right internal carotid artery is 126 cm/sec. This corresponds to a 40-59 percent proximal right ICA stenosis. Normal systolic velocities are noted in the proximal right external carotid artery. There is antegrade flow in the right vertebral artery. The peak systolic velocity in the proximal left internal carotid artery is 90 cm/sec. This corresponds to a 20 to 39% proximal left ICA stenosis. Normal systolic velocities are noted in the proximal left external carotid artery. There is antegrade flow in the left vertebral artery. IMPRESSION: 1. 40-59 percent proximal right ICA stenosis. 2. 20-39 percent proximal left ICA stenosis. 3. Antegrade flow in both vertebral arteries.
--- NOTE | 2017-01-14 15:37 | PN ---
DATE: 01/14/2017 ADDENDUM The patient underwent loop recorder interrogation made of [employer]. No arrhythmia noted responsible for this episode of syncope. No episode of any arrhythmia or pause noted. Thank you Dr. Hutchinson for providing us the opportunity in taking care of the patient, Ibrahima Cardona. Gabriela Joshi MD
--- NOTE | 2017-01-14 17:24 | PN ---
DATE: SUBJECTIVE: A 76-year-old male who was admitted to [facility] for altered mental status, found lying on the floor by a neighbor for undetermined period of time. The patient has no recollection of the events leading up to this. PHYSICAL EXAMINATION: VITAL SIGNS: Temperature this morning is 98.7, his blood pressure 166/95, his oxygen sat 94%, his respiratory rate is 19. He is alert this morning. He is at times confused. Family member, his sister is at the bedside. NECK: Supple. LUNGS: Clear. HEART: S1 and S2 rhythm. ABDOMEN: Soft, positive bowel sounds. EXTREMITIES: No evidence of edema. Cultures of blood in urine are negative today. LABORATORY DATA: Shows WBC of 8.5, RBC 4.21, hemoglobin 12.7, hematocrit 38.3 and platelet count 240. Chemistry shows normal electrolytes with normal LFTs, triglycerides of 166. His hemoglobin A1c is 5.0. History of hypothyroid disease. The consult has been requested for endocrinology evaluation. A physical therapy evaluation is in progress at this time. He is being followed by neurology and an MRI of the brain has been requested. We are awaiting results. Family is interacting with secondary social studies teacher. There was an intent to look for placement for the patient. Also Cardiology is following the patient and is monitoring his loop monitor. Irene Hutchinson MD
--- NOTE | 2017-01-14 18:50 | MRI ---
PROCEDURE: MRI BRAIN WITHOUT CONTRAST HISTORY: ams, cva COMPARISON: Comparison is made to the previous CT of the head dated 01/12/2017 TECHNIQUE: Multiplanar, multisequence MR images of the brain were obtained without intravenous contrast enhancement. FINDINGS: HEMORRHAGE: None DWI: Small foci of diffusion restriction noted at the left posterior frontal lobe consistent with small infarction. BRAIN PARENCHYMA: No mass effect or edema. Moderate atrophy is noted. Moderate to extensive white matter changes are seen consistent with chronic microvascular ischemic disease. VENTRICLES: Unremarkable. No hydrocephalus. CRANIUM: Unremarkable. ORBITS: Grossly unremarkable. PARANASAL SINUSES/MASTOIDS: Clear VASCULAR SYSTEM: Skull base flow voids intact. OTHER FINDINGS: None. IMPRESSION: Small foci of diffusion restriction at the posterior left frontal lobe consistent with acute infarction. Moderate atrophy and extensive white matter changes suggestive of chronic microvascular ischemic disease.
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
--- NOTE | 2017-01-15 03:52 | CON ---
DATE: ENDOCRINOLOGY CONSULTATION LOCATION: In room 276. HISTORY OF PRESENT ILLNESS: This is a 76-year-old male with known history of hypertension and dyslipidemia and admitted here with sudden onset of unresponsiveness, found by his neighbor and presenting here with altered mental status and is now being referred for endocrine evaluation because of abnormal thyroid function studies. PAST MEDICAL HISTORY: As mentioned above, history of hypertension, on Norvasc given as 10 mg daily, history of dyslipidemia. MEDICATIONS: No medications. FAMILY HISTORY: Positive for hypertension and heart disease. SOCIAL HISTORY: The patient lives alone. No known substance use. REVIEW OF SYSTEMS: As mentioned above. Admits to generalized body weakness with easy fatigability and tiredness and suboptimal energy level. Also admits to increasing bouts of lethargy and hypersomnolence, worse in the last few days prior to admission. No chest pains or palpitations or PND. His oral intake is variable with nausea, dyspepsia and vague upper abdominal pains. Also admits to habitual constipation. PHYSICAL EXAMINATION: GENERAL: An average built male in no apparent distress. VITAL SIGNS: Blood pressure of 140/80, pulse of 60 beats per minute regular, temperature 98, respirations 20. Height is 6 feet, weight is 164 pounds. HEENT: Head normocephalic. Eyes anicteric with pink conjunctivae. Funduscopy not possible at this time. Ears, nose and throat otherwise normal. NECK: Supple. Thyroid gland is normal in size. No carotid bruits or cervical adenopathy. CARDIOPULMONARY: Adynamic precordium. S1 and S2 is rapid and regular. LUNGS: Clear to auscultation. ABDOMEN: Flat, soft with positive bowel sounds. EXTREMITIES: No peripheral edema. Pulses are +2 bilaterally. LABORATORY DATA: The chemistry shows a BUN of 14, sodium 143, potassium 4.4, chloride 110, CO2 of 26, glucose 104 and creatinine 1.4. His thyroid studies showed a TSH of 6.8. ASSESSMENT: This is a 76-year-old male with sudden onset of a brief bout of unresponsiveness presenting here with altered mental status and evaluated to have early hypothyroidism most likely related to underlying autoimmune thyroiditis. There are no overt palpable nodules nor cysts or any cervical adenopathy noted at this time. PLAN OF MANAGEMENT: As discussed with the patient and staff, will start him on a low-dose oral levothyroxine replacement therapy at least of a initial dose of 75 mcg once daily before breakfast as ordered. We will titrate incrementally as indicated to optimize metabolic control. We will obtain thyroid antibodies to confirm and/or indicate the presence of thyroid autoimmunity. We will also do a comprehensive thyroid hormonal profile tomorrow with a total and free T4 and TSH. I will adjust his dose regimen accordingly. We will follow with you. Luana Degroot MD
[2017-01-15] MEDS ORDERED: Levothyroxine 25 MCG TAB PO SCH ×2 (06:00→07:30)
--- NOTE | 2017-01-15 06:58 | CP.PCM.PN ---
Subjective - Date & Time of Evaluation Date of Evaluation: 01/15/17 Time of Evaluation: 06:54 - Subjective Subjective: Neurology Progress Note for Daniel Lane PGY2 Patient seen and examined at bedside. As per nursing there were no acute overnight events. Patient is A&O x [address] He denies having any CP, vision changes, SOB, weakness, n/v/d, numbness/tingling, headache, dizziness , fever or chills. Objective - Vital Signs/Intake and Output Vital Signs (last 24 hours): Temp Pulse Resp BP Pulse Ox 97.5 F L 66 20 154/74 H 94 L 01/15/17 06:00 01/15/17 06:00 01/15/17 06:00 01/15/17 06:00 01/14/17 09:04 Intake and Output: 01/14/17 01/15/17 18:59 06:59 Intake Total 0 0 Output Total 500 200 Balance -500 -200 - Medications Medications: Current Medications Amlodipine Besylate (Norvasc) 10 mg PO DAILY [facility] Last Admin: 01/14/17 10:34 Dose: 10 mg Aspirin (Aspirin Chewable) 81 mg PO DAILY [facility] Atorvastatin Calcium (Lipitor) 20 mg PO DIN [facility] Levothyroxine Sodium (Synthroid) 75 mcg PO ACB [facility]IR[facility] - Labs Labs: 01/14/17 06:30 01/14/17 06:30 PT 10.4 Seconds (9.9-11.8) 01/12/17 17:21 INR 0.96 (0.93-1.08) 01/12/17 17:21 APTT 25.9 Seconds (23.7-30.8) 01/12/17 17:21 - Constitutional Appears: No Acute Distress - Head Exam Head Exam: ATRAUMATIC, NORMAL INSPECTION, NORMOCEPHALIC - Eye Exam Eye Exam: Normal appearance, PERRL Pupil Exam: NORMAL ACCOMODATION - ENT Exam ENT Exam: Mucous Membranes Moist - Respiratory Exam Respiratory Exam: Clear to Ausculation Bilateral, NORMAL BREATHING PATTERN. absent: Rales, Rhonchi, Wheezes - Cardiovascular Exam Cardiovascular Exam: REGULAR RHYTHM, +S1, +S2. absent: Gallop, Rubs, Murmur - GI/Abdominal Exam GI & Abdominal Exam: Soft, Normal Bowel Sounds. absent: Rigid, Tenderness, Mass , Rebound - Extremities Exam Extremities Exam: Normal Inspection. absent: Calf Tenderness, Pedal Edema - Neurological Exam Neurological Exam: Alert, Awake, CN II-XII Intact. absent: Oriented x3 (A&O x 2 ) Neuro motor strength exam: Left Upper Extremity: 5, Right Upper Extremity: 5, Left Lower Extremity: 5, Right Lower Extremity: 5 Additional comments: Decreased sensation to light tough and pinprick up to calves bilaterally. Decreased vibration of toes. DTR 1+ throughout. Coordination of finger to nose intact. - Psychiatric Exam Psychiatric exam: Normal Affect, Normal Mood - Skin Skin Exam: Dry, Normal Color, Warm Assessment and Plan - Assessment and Plan (Free Text) Assessment: This is a 76Y M with PMH HTN, Hypothryroidism, cognitive impairment, hx of B12 deficiency, who was found unconscious at neighbor's home wand was found to be slightly altered with elevated BP. Carotid doppler showed 20-39% stenosis in L ICA and 40-59% in R ICA. MRI showed small foci at the posterior L frontal lobe consistent with acute infract and chronic white matter changes. AMS is secondary to CVA from atherosclerotic disease. Plan: - Will start patient on ASA and Lipitor - Avoid sudden changes in BP - Physical therapy/Occupational therapy PT recommended rehab which patient will benefit from. Case seen, discussed and reviewed with Dr. Snyder. Daniel Lui PGY2
[2017-01-15 07:32] LABS: FREE T4 0.94 ng/dL (0.78-2.19); T4 7.6 ug/dL (5.5-11.0)
[2017-01-15 07:45] LABS: THYROID STIMULATING HORMONE 6.55 mIU/mL (0.46-4.68)
[2017-01-15 08:10] LABS: ALB/GLOB RATIO 1.3 (1.1-1.8); BILIRUBIN,TOTAL 0.8 mg/dL (0.2-1.3); CALCIUM 10.4 mg/dL (8.4-10.5); TOTAL PROTEIN 7.2 g/dL (5.8-8.3)
[2017-01-15] MEDS: Levothyroxine 75 MCG TAB PO SCH (10:23)
--- NOTE | 2017-01-15 15:25 | PN ---
DATE: 01/15/2017 REASON FOR CONSULTATION: Follow up hypertension, admitted with possible fall, rule out syncope, status post loop recorder, status post extensive EP study and then was negative. SUBJECTIVE: The patient denies any chest pain, shortness of breath, any palpitation. PHYSICAL EXAMINATION: As follows, GENERAL: Patient is lying flat on the bed, not in apparent distress. VITAL SIGNS: Orthostatic blood pressure was found to be 153/74 lying, sitting 152/100, and standing 150/90. No evidence of orthostatic hypotension. HEENT: PERRLA intact. NECK: Supple. No carotid bruits or thyromegaly. CHEST: Clear to auscultation. HEART: S1 and S2 regular. ABDOMEN: Soft. EXTREMITIES: Clubbing and cyanosis negative. LABORATORY DATA: Blood workup as follows: WBC 8.5, hemoglobin 12.7, hematocrit 38.3, platelet count 240. Chemistry shows sodium 143, potassium of 4, chloride 107, carbon dioxide 28, anion gap of 12, BUN of 15, creatinine 1.4. IMPRESSION: Status post fall, rule out syncope, history of extensive cardiac workup including tilt table and Electrophysiology study which was negative from the last syncope, is status post loop recorder implantation on 02/06/2016. Yesterday, a loop recorder intervention was done, no issues, no arrhythmia noted, no pause, or any significant evidence of arrhythmia noted. Normal functioning loop recorder. History of a stress test on 01/29/2015 is negative, history of echocardiography on 01/29/2015 is normal, no significant structural heart disease, trace mitral regurgitation, tricuspid regurgitation, aortic regurgitation. 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 No evidence for orthostatic hypotension. Continue atorvastatin, continue aspirin, continue amlodipine and I will discontinue telemetry. Thank you Dr. Hutchinson, for providing us the opportunity in taking care of the patient, Ibrahima Cardona. Garbiela Joshi MD cc: Irene Hutchinson MD
--- NOTE | 2017-01-15 15:51 | PN ---
DATE: SUBJECTIVE: A 76-year-old male resting in bed this morning. Nursing staff relates that there were no particular problems during the night. PHYSICAL EXAMINATION VITAL SIGNS: His temperature is 97.5, his pulse is 66, his blood pressure is 154/74, his respiratory rate is 20. GENERAL: The patient is awake and alert. NECK: Supple. LUNGS: Clear. HEART: S1 and S2 rhythm. ABDOMEN: Soft with positive bowel sounds. EXTREMITIES: No evidence of edema. LABORATORY DATA: Chemistry shows sodium 143, potassium 4, chloride 107. The BUN is 15, the creatinine is 1.4. His LFTs are normal. ASSESSMENT AND PLAN: Currently, the patient is on Synthroid by Endocrinology, 75 mcg daily for his hypothyroid disease. Cardiology has placed the patient on aspirin 81 mg daily, Lipitor 20 mg daily, and Norvasc 10 mg daily. They are following him medically and we are awaiting their input in terms of further medical management. His loop recorder was interrogated and was reported hearing no evidence of arrhythmia for this episode of syncope as per Dr. Joshi's note on 01/14/2017. He had an MRI of the brain, which is showing a left frontal lobe infarct and moderate atrophy and extensive white matter changes. We are awaiting input from the individual consultants and Psychiatry regarding further medical management. The patient will be referred for acute rehab. This has been discussed with his sister, Ivon Chester and the patient. This has also been communicated with Mr. , real estate attorney. Continue current medical management. Physical Therapy evaluation is in progress. Irene Hutchinson MD
--- NOTE | 2017-01-15 17:21 | PN ---
ENDOCRINOLOGY FOLLOWUP NOTE DATE: LOCATION: Room 276. SUBJECTIVE: This is a 76-year-old male with recent evaluation for hypothyroidism, currently tolerating the initial dosing regimen as given. He remains clinically euthyroid and by chemically, he has evidence of early hypothyroidism as noted. The repeat thyroid study shows a T4 of 7.6 mcg/dL with a free T4 of 0.94 and a TSH of 6.55. ASSESSMENT AND PLAN: So, at this time, we will continue the levothyroxine given at 75 mcg once daily as ordered and we will titrate incrementally as indicated to optimize metabolic control. It takes 4 to 6 weeks for actual normalization of the TSH level as noted. We are awaiting the thyroid antibodies which will confirm and/or negate the presence of underlying thyroid autoimmunity. We will follow and advise accordingly. Luana Degroot MD
--- NOTE | 2017-01-15 17:30 | CP.PCM.PN ---
Subjective - Date & Time of Evaluation Date of Evaluation: 01/15/17 Time of Evaluation: 09:10 - Subjective Subjective: Comfortable in bed, not in distress, no fevers. Objective - Vital Signs/Intake and Output Vital Signs (last 24 hours): Temp Pulse Resp BP Pulse Ox 97.5 F L 66 20 154/74 H 94 L 01/15/17 06:00 01/15/17 06:00 01/15/17 06:00 01/15/17 06:00 01/14/17 09:04 Intake and Output: 01/15/17 01/15/17 06:59 18:59 Intake Total 0 Output Total 200 Balance -200 - Medications Medications: Current Medications Amlodipine Besylate (Norvasc) 10 mg PO DAILY VIRAL Last Admin: 01/14/17 10:34 Dose: 10 mg Aspirin (Aspirin Chewable) 81 mg PO DAILY VIRAL Atorvastatin Calcium (Lipitor) 20 mg PO DIN VIRAL Levothyroxine Sodium (Synthroid) 75 mcg PO ACB VIRAL - Labs Labs: 01/14/17 06:30 01/14/17 06:30 PT 10.4 Seconds (9.9-11.8) 01/12/17 17:21 INR 0.96 (0.93-1.08) 01/12/17 17:21 APTT 25.9 Seconds (23.7-30.8) 01/12/17 17:21 - Constitutional Appears: Non-toxic, No Acute Distress - Head Exam Head Exam: NORMAL INSPECTION - Neck Exam Neck Exam: absent: Meningismus - Respiratory Exam Respiratory Exam: Decreased Breath Sounds - Cardiovascular Exam Cardiovascular Exam: +S1, +S2 - GI/Abdominal Exam GI & Abdominal Exam: Soft. absent: Tenderness Assessment and Plan - Assessment and Plan (Free Text) Plan: Assessment Systemic Inflammatory Response Syndrome, probably acute stress reaction after a fall and left frontal lobe acute infarct; no sepsis source identified HTN S/P partial thyroidectomy S/P tonsillectomy Plan CXR does not show infiltrates, blood, urine cx are negative, PCT is only 0.08 WBC count has normalized - continue to monitor off antibiotics since he is at risk for nosocomial infection CVA treatment as per Neurology
[2017-01-16 05:09] VITALS: RESP 16; O2SAT 99
[2017-01-16 07:15] LABS: BASO # 0.06 K/mm3 (0.0-2.0); BASO % 0.7 % (0.0-3.0); EOS # 0.4 (0.0-0.7); EOS % 4.9 % (1.5-5.0); GRAN # 5.49 (1.4-6.5); HEMATOCRIT 40.9 % (42.0-52.0); LYMPH # 1.9 (1.2-3.4); LYMPH % 21.8 % (22.0-35.0); MEAN CELL VOLUME 90.7 fl (80.0-105.0); MEAN CORPUSCULAR HEMOGLOBIN 30.6 pg (25.0-35.0); MEAN CORPUSCULAR HGB CONC 33.7 g/dl (31.0-37.0); MONO # 0.7 (0.1-0.6); MONO % 8.6 % (1.0-6.0); RED CELL DISTRIBUTION WIDTH 13.5 % (11.5-14.5); WHITE BLOOD COUNT 8.6 10^3/ul (4.5-11.0)
[2017-01-16 07:36] LABS: ALB/GLOB RATIO 1.2 (1.1-1.8); CALCIUM 10.2 mg/dL (8.4-10.5); MAGNESIUM 2.1 mg/dL (1.7-2.2); PHOSPHOROUS 2.7 mg/dL (2.5-4.5); POTASSIUM 4.5 mmol/L (3.6-5.0); TOTAL PROTEIN 6.9 g/dL (5.8-8.3)
[2017-01-16 08:05] VITALS: PULSE 66; TEMP 97.6
[2017-01-16] MEDS: Levothyroxine 75 MCG TAB PO SCH (08:25)
--- NOTE | 2017-01-16 09:22 | CP.PCM.PN ---
Subjective - Date & Time of Evaluation Date of Evaluation: 01/16/17 Time of Evaluation: 09:19 - Subjective Subjective: Neurology Progress Note for Daniel Lane PGY2 Patient seen and examined at bedside. As per nursing there were no acute overnight events. He is resting in bed comfortably. Patient is A&O x [address] He also knows who the President is. Patient denies having any pain, weakness, numbness/tingling, fever/chills, headache, dizziness, chest pain or shortness of breath. Objective - Vital Signs/Intake and Output Vital Signs (last 24 hours): Temp Pulse Resp BP Pulse Ox 97.6 F 66 16 160/106 H 99 01/16/17 08:04 01/16/17 08:04 01/16/17 08:04 01/16/17 08:04 01/16/17 08:04 - Medications Medications: Current Medications Amlodipine Besylate (Norvasc) 10 mg PO DAILY [facility] Last Admin: 01/15/17 10:23 Dose: 10 mg Aspirin (Aspirin Chewable) 81 mg PO DAILY [facility] Last Admin: 01/15/17 10:23 Dose: 81 mg Atorvastatin Calcium (Lipitor) 20 mg PO DIN [facility] Last Admin: 01/15/17 18:17 Dose: 20 mg Levothyroxine Sodium (Synthroid) 75 mcg PO ACB VIRAL Last Admin: 01/16/17 08:25 Dose: 75 mcg - Labs Labs: 01/16/17 07:08 01/16/17 07:08 PT 10.4 Seconds (9.9-11.8) 01/12/17 17:21 INR 0.96 (0.93-1.08) 01/12/17 17:21 APTT 25.9 Seconds (23.7-30.8) 01/12/17 17:21 - Constitutional Appears: No Acute Distress - Head Exam Head Exam: ATRAUMATIC, NORMAL INSPECTION, NORMOCEPHALIC - Eye Exam Eye Exam: Normal appearance, PERRL Pupil Exam: NORMAL ACCOMODATION, PERRL - ENT Exam ENT Exam: Mucous Membranes Moist - Neck Exam Neck Exam: Full ROM - Respiratory Exam Respiratory Exam: Clear to Ausculation Bilateral, NORMAL BREATHING PATTERN. absent: Rales, Rhonchi, Wheezes - Cardiovascular Exam Cardiovascular Exam: REGULAR RHYTHM, +S1, +S2. absent: Gallop, Rubs, Murmur - GI/Abdominal Exam GI & Abdominal Exam: Soft, Normal Bowel Sounds. absent: Rigid, Tenderness, Mass , Rebound - Extremities Exam Extremities Exam: Normal Inspection. absent: Calf Tenderness, Pedal Edema - Neurological Exam Neurological Exam: Alert, Awake, CN II-XII Intact. absent: Oriented x3 (A&O x 2 ) Neuro motor strength exam: Left Upper Extremity: 5, Right Upper Extremity: 5, Left Lower Extremity: 5, Right Lower Extremity: 5 Additional comments: Decreased sensation to light tough and pinprick up to calves bilaterally. Decreased vibration of toes. DTR 1+ throughout. Coordination of finger to nose intact. - Psychiatric Exam Psychiatric exam: Normal Affect, Normal Mood - Skin Skin Exam: Dry, Warm Assessment and Plan - Assessment and Plan (Free Text) Assessment: This is a 76yo male with past medical history of HTN, Hypothryroidism, cognitive impairment, histroy of B12 deficiency, who was found unconscious at neighbor's home wand was found to be slightly altered with elevated BP. Carotid doppler showed 20-39% stenosis in L ICA and 40-59% in R ICA. MRI showed small foci at the posterior L frontal lobe consistent with acute infract and chronic white matter changes. AMS is secondary to CVA from atherosclerotic disease. Plan: - Continue ASA and Lipitor - Out of bed to chair - Continue physical therapy - Physical therapy recommended acute rehab - Avoid sudden drops in blood pressure Case seen, discussed and reviewed with Dr. Snyder. Daniel Lui PGY2
[2017-01-16 09:36] VITALS: BP 141/87
--- NOTE | 2017-01-16 11:48 | PN ---
DATE: 01/16/2017 SUBJECTIVE: The patient is in bed in no acute distress and nontoxic. PHYSICAL EXAMINATION: VITAL SIGNS: The patient's temperature is 98, blood pressure is 160/100, and respiratory rate of 18. HEENT: Examination of HEENT is unremarkable. NECK: Supple. LUNGS: Sounds are decreased breath sounds. HEART: Normal S1 and S2. GASTROINTESTINAL: Abdominal examination is soft and nontender. LABORATORY DATA: Examination reveals a white count of 8.6, hemoglobin of 13, and platelets of 241. BUN of 18 and creatinine of 1.4. Urinalysis is noted and microbiology is noted. Blood cultures no growth. Urine cultures no growth. ASSESSMENT AND PLAN: He is a 76-year-old male with SIRS (systemic inflammatory response syndrome), acute stress reaction after a fall, left frontal lobe acute infarct and no sepsis identified. He is currently off of antibiotics in this patient with hypertension, history and history of partial thyroidectomy and tonsillectomy and review of orders confirms the patient to be off of antibiotics. The patient is at risk for developing nosocomial infection. Sebastian Francois MD
--- NOTE | 2017-01-16 13:26 | PN ---
DATE: 01/16/2017 REASON FOR CONSULTATION AND FOLLOWUP: Hypertension, admitted with possible fall, rule out syncope, status post loop recorder, and status post extensive EP study, which was negative. SUBJECTIVE: The patient denies any chest pain, shortness of breath, or any palpitations. OBJECTIVE: GENERAL: Lying flat in the bed, not in apparent distress. VITAL SIGNS: As follows: Temperature afebrile, heart rate 66, and blood pressure 144/87. HEENT: PERRLA intact. NECK: Supple. No carotid bruit or thyromegaly. CHEST: Clear to auscultation. HEART: S1 and S2 regular. ABDOMEN: Soft. EXTREMITIES: Clubbing and cyanosis negative. LABORATORY DATA: Blood workup as follows: WBC 8.6, hemoglobin 13.8, hematocrit 40.9. and platelet count 241. Chemistry shows sodium 140, potassium 4.4, chloride , carbon dioxide 31, anion gap of 9, BUN 13, and creatinine 1.4. IMPRESSION AND PLAN: Status post fall, rule out syncope, history of extensive cardiac workup including tilt-table electrophysiology study at [facility] with a negative, status post loop recorder implantation on 02/06/2016. Day before yesterday, loop recorder interpretation was done, no issues and no arrhythmia noted. No pause or any significant arrhythmia noted. Normal functioning loop recorder. The patient had a MRI of the brain that consistent with cerebrovascular accident, history of stress test on 01/29/2015 is negative, history of echocardiography on 01/29/2015 normal, no significant structural heart disease noted, trace mitral regurgitation, trace aortic and tricuspid regurgitation. We will discontinue telemetry. Continue rehabilitation. No evidence of orthostatic hypotension, most likely from cerebrovascular accident. Continue baby aspirin 81 mg, continue atorvastatin 20 mg daily, and continue amlodipine 10 mg daily. We will follow with you. The patient is stable from cardiology point of view, no further cardiac workup is planned or warranted. Thank you Dr. Hutchinson for providing us the opportunity in taking care of the patient, Ibrahima Cardona . Gabriela Joshi MD
--- NOTE | 2017-01-16 22:34 | PN ---
DATE: ENDOCRINOLOGY FOLLOWUP NOTE SUBJECTIVE: This is a 76-year-old male with recent evaluation for hypothyroidism, most likely related to underlying autoimmune thyroiditis and currently tolerating the levothyroxine replacement therapy has given. His latest chemistries showed a BUN of 18, sodium 142, potassium 4.5, chloride 107, CO2 31, glucose 104 and creatinine 1.4. His latest thyroid study showed T4 of 7.6 with a free T4 0.94 and TSH of 6.55. So, at this time, we will continue the levothyroxine given as 75 mcg once daily as ordered. We will titrate incrementally as indicated to optimize metabolic control. We will follow and advice accordingly. Luana Degroot MD
--- NOTE | 2017-01-17 05:39 | DS ---
HISTORY OF PRESENT ILLNESS: A 76-year-old male who was admitted to [facility] after being found by a neighbor on the floor at home. He was seen in the hospital by Dr. Joshi, Cardiology service, Dr. Francois, Infectious Disease service, Dr. Snyder, Neurology service, Dr. Degroot, Endocrine service and Dr. Acuña of Psychiatry service. The patient was found to have an acute stroke, which was felt to be probable etiology of his syncopal episode at home. He was to be transferred to [place] acute rehab as per the recommendations of Neurology. He had a loop monitor interrogated through Cardiology, which showed no events, which was felt to be contributory to his syncopal episode at home. He was cleared by Infectious Disease off of antibiotics. Endocrinology placed the patient on 75 mcg of Synthroid for his hyperthyroid disease. His peroxidase was negative. He had a brain MRI, which showed an acute infarct in the posterior left frontal lobe with acutely white matter changes just about chronic microvascular ischemic disease. His chest x-ray was reported as showing no active disease. He had a carotid ultrasound, which showed 20% to 39% proximal left ICA stenosis, antegrade flow in both vertebral arteries and 40% to 59% proximal right ICA stenosis. Head CT showed atrophy. Microbiological study, blood cultures., urine cultures were negative. LABORATORY DATA: On discharge showed normal electrolytes, his creatinine was 1.4, his BUN was 18. Normal LFTs. His CBC showed WBC of 8.6, RBC 3.5, hemoglobin 13.8, hematocrit 40.9 and platelet count was 241. PT was 10.4 with an INR of 0.96 and PTT was 25.9. Toxicology screen was negative. He would be followed in acute rehab. Family was aware that there will be a need for re-evaluation of his psychiatric and neurological status. He was followed by Psychiatry to rule out possibility of delirium and dementia. Family was aware that there would be need for complete followup and evaluation once he completed his acute rehab therapy. MEDICATIONS: His medications consists of Ecotrin 81 mg daily, Lipitor 20 mg daily, Norvasc 10 mg daily and Synthroid 75 mcg daily. Irene Hutchinson MD
== END 2017-01-16 21:22 | DRG 65 ==
LOC: ED 16:49 → ERH 19:24 → 2RSO 21:52 → 5RSO 01-15 21:01
PROVIDERS: ADMIT Internal Medicine; ATTEND Internal Medicine
DX: I63.9 Cerebral infarction, unspecified (principal); N39.0 Urinary tract infection, site not specified; I10 Essential (primary) hypertension; I65.23 Occlusion and stenosis of bilateral carotid arteries; E53.8 Deficiency of other specified B group vitamins; E78.5 Hyperlipidemia, unspecified; E03.9 Hypothyroidism, unspecified; E06.3 Autoimmune thyroiditis; Z91.19 Patient's noncompliance with other medical treatment and regimen; Z87.891 Personal history of nicotine dependence; Z91.81 History of falling